=== PATIENT | female | born 1995 | race American Indian/Alaskan Native ===

== ENCOUNTER 2016-10-27 11:01 | Outpatient (CLI) | payer BC, MEDICAID ==
--- NOTE | 2016-10-27 11:49 | XRay Report ---
LEFT HIP, 2 views: History: Left hip pain. The bony architecture is intact without evidence of fracture or dislocation. No significant soft tissue abnormality is seen. IMPRESSION: Normal left hip.
== END 2016-10-27 11:02 | disposition home or self-care (01) ==
LOC: XRAY 11:01
PROVIDERS: ATTEND Physical Medicine & Rehabilitation
DX: M25.552 Pain in left hip (principal)

== ENCOUNTER 2018-02-15 22:20 | Emergency (ER) | payer OTHER, MEDICARE ==
--- NOTE | 2018-02-16 00:29 | XRay Report ---
FINAL REPORT PROCEDURE: XR KNEE 3V RT TECHNIQUE: RIGHT knee radiographs, AP, lateral and sunrise views. CPT 92727 HISTORY: Right knee pain COMPARISON: No prior studies are available for comparison. FINDINGS: Fracture (s) and/or Dislocation(s): None . Alignment: Normal . 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 Soft tissues: Normal . Bone mineralization: Normal . Foreign bodies: None . IMPRESSION: There are no fractures or malalignments. There is degenerative change of the femoral condyles..
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
[2018-02-16] MEDS ORDERED: PERCOCET 5/325 PO ONE (03:39)
[2018-02-16 04:09] VITALS: BP 116/64
== END 2018-02-16 04:09 | disposition home or self-care (01) ==
LOC: ED 22:20
DX: S80.01XA Contusion of right knee, initial encounter (principal); M25.561 Pain in right knee; M32.9 Systemic lupus erythematosus, unspecified; Z96.652 Presence of left artificial knee joint; X58.XXXA Exposure to other specified factors, initial encounter; Y93.89 Activity, other specified; Y99.8 Other external cause status; Y92.89 Other specified places as the place of occurrence of the external cause
CPT/HCPCS: 99283